=== PATIENT | female | born 1940 | race Caucasian/White ===

== ENCOUNTER → 2018-02-05 | Outpatient (CLI) | payer OTHER, BC ==
[~2018-02-05] VITALS: Ht 147.3 cm; Wt 47.6 kg
[~2018-02-05] MED LIST: BYSTOLIC10 MG PO; CALCIUM 500 +1 EACH PO; IMVEXXY10 MCG VG; NORVASC5 MG PO; PHAZYME PO; PREVACID30 MG PO; XANAX0.25 MG PO; ZESTORETIC 20-1 EAC2 PO
== END | disposition home or self-care (01) ==
LOC: AMB 09:12
DX: K29.80 Duodenitis without bleeding (principal); K31.7 Polyp of stomach and duodenum; I10 Essential (primary) hypertension; K21.9 Gastro-esophageal reflux disease without esophagitis; E78.00 Pure hypercholesterolemia, unspecified; R73.9 Hyperglycemia, unspecified; E78.5 Hyperlipidemia, unspecified; Z86.010 Personal history of colon polyps; M81.0 Age-related osteoporosis without current pathological fracture; M31.6 Other giant cell arteritis; Z88.1 Allergy status to other antibiotic agents; Z88.8 Allergy status to other drugs, medicaments and biological substances
CPT/HCPCS: 88305; 88342 TC; J7643